=== PATIENT | female | born 1955 | race Caucasian/White ===

== ENCOUNTER 2016-03-18 05:59 | Day surgery (SDC) | payer MEDICARE, MEDICAID ==
[2016-03-18] MEDS ORDERED: LACTATED RINGERS 1,000 ML IV ONE (06:43)
[2016-03-18] MEDS ORDERED: MORPHINE 10 MG/ML VIAL IVP ONE (08:45)
[2016-03-18] MEDS ORDERED: LIDOCAINE-MPF 2% 5 ML VIAL IM ONE (08:45)
[2016-03-18] MEDS ORDERED: PROPOFOL 200 MG/20 ML VIAL IVP ONE (08:45)
== END 2016-03-18 06:00 | disposition home or self-care (01) ==
PROC: 0DBM8ZZ Excision of Descending Colon, Via Natural or Artificial Opening Endoscopic (ICD-10-PCS; principal; 2016-03-18 07:30)
PROC: 0DJ08ZZ Inspection of Upper Intestinal Tract, Via Natural or Artificial Opening Endoscopic (ICD-10-PCS; 2016-03-18 07:30)
DX: Z12.11 Encounter for screening for malignant neoplasm of colon (principal); D12.4 Benign neoplasm of descending colon; K64.8 Other hemorrhoids; R13.10 Dysphagia, unspecified; K21.9 Gastro-esophageal reflux disease without esophagitis; Z80.0 Family history of malignant neoplasm of digestive organs; J44.9 Chronic obstructive pulmonary disease, unspecified; F17.210 Nicotine dependence, cigarettes, uncomplicated; K44.9 Diaphragmatic hernia without obstruction or gangrene; R11.2 Nausea with vomiting, unspecified; E66.9 Obesity, unspecified; Z68.36 Body mass index [BMI] 36.0-36.9, adult; G47.30 Sleep apnea, unspecified
CPT/HCPCS: 43235; 45380; J7120

== ENCOUNTER 2019-11-16 12:54 | Outpatient (CLI) | payer MEDICARE, MEDICAID | END 2019-11-16 12:55 | disposition home or self-care (01) | LOC: RT 12:54 | PROVIDERS: ATTEND Family Medicine | DX: J44.1 Chronic obstructive pulmonary disease with (acute) exacerbation (principal) | CPT/HCPCS: 94060; 94729 ==

== ENCOUNTER 2019-12-06 08:00 | Outpatient (CLI) | payer MEDICARE, MEDICAID ==
[2019-12-06 18:18] LABS: BASOPHILS # (AUTO) 0.1 10^3/uL (0.0-0.1); BASOPHILS % (AUTO) 0.8 %; EOSINOPHILS % (AUTO) 0.1 %; HGB - HEMOGLOBIN 14.1 g/dL (12.0-16.0); LYMPHOCYTES # (AUTO) 3.2 10^3/uL (1.5-3.5); LYMPHOCYTES % (AUTO) 26.9 %; MEAN CORPUSCULAR HEMOGLOBIN 29.9 pg (27.0-31.0); MEAN CORPUSCULAR HGB CONC 31.8 g/dL (32.0-36.0); MEAN CORPUSCULAR VOLUME 94.1 fL (81.0-99.0); MEAN PLATELET VOLUME 10.3 fL (7.9-10.8); MONOCYTES # (AUTO) 0.8 10^3/uL (0.0-1.0); MONOCYTES % (AUTO) 6.5 %; NEUTROPHILS # (AUTO) 7.7 10^3/uL (1.5-6.6); NEUTROPHILS % (AUTO) 65.4 %; PLT - PLATELET COUNT 395 10^3/uL (130-450); RED BLOOD COUNT 4.71 10^6/uL (4.20-5.40); RED CELL DISTRIBUTION WIDTH 13.3 % (12.0-15.0); WHITE BLOOD COUNT 11.7 x10^3/uL (4.8-10.8)
[2019-12-06 18:30] LABS: ALBUMIN 3.8 g/dL (3.2-5.5); ALBUMIN/GLOBULIN RATIO 1.1 (1.0-2.2); ALKALINE PHOSPHATASE 79 IU/L (42-121); ALT ALANINE AMINOTRANSFERASE 13 IU/L (10-60); AST ASPARTATE AMINOTRANSFERASE 15 IU/L (10-42); BILIRUBIN,TOTAL 0.6 mg/dL (0.2-1.0); BUN - BLOOD UREA NITROGEN 14 mg/dL (6-20); CALCIUM 9.4 mg/dL (8.5-10.3); CARBON DIOXIDE - CO2 24 mmol/L (21-32); CHLORIDE 106 mmol/L (101-111); CHOL/HDL RATIO 6.6 (<4.4); CHOLESTEROL 212 mg/dL; CREATININE 1.1 mg/dL (0.4-1.0); GLUCOSE 100 mg/dL (70-100); HDL CHOLESTEROL 32 mg/dL; LDL CHOLESTEROL,CALCULATED 141 mg/dL; LDL/HDL RATIO 4.4 (<4.4); SODIUM 140 mmol/L (135-145); TOTAL PROTEIN 7.3 g/dL (6.7-8.2); VLDL CHOLESTEROL 39 mg/dL
[2019-12-06 20:12] LABS: FREE T4 (FREE THYROXINE) 0.79 ng/dL (0.58-1.64)
[2019-12-06 20:22] LABS: HEMOGLOBIN A1c% 5.8 % (4.27-6.07)
== END 2019-12-06 23:59 | disposition home or self-care (01) ==
LOC: LAB.WCP 08:00
PROVIDERS: ATTEND Physician Assistant
DX: J44.9 Chronic obstructive pulmonary disease, unspecified (principal); E66.01 Morbid (severe) obesity due to excess calories; E03.9 Hypothyroidism, unspecified
CPT/HCPCS: 36415; 80053; 80061; 83036; 83721; 84439; 84443; 85025

== ENCOUNTER 2019-12-26 22:02 | Outpatient (CLI) | payer MEDICARE, MEDICAID | END 2019-12-26 22:03 | disposition short-term general hospital (02) | LOC: EMS 22:02 | PROVIDERS: ATTEND Surgery | DX: R07.9 Chest pain, unspecified (principal); M54.2 Cervicalgia; R06.00 Dyspnea, unspecified | CPT/HCPCS: A0425; A0427 ==

== ENCOUNTER 2020-02-05 14:43 | Outpatient (CLI) | payer MEDICARE, MEDICAID ==
[2020-02-05 15:41] VITALS: BP 160/97
--- NOTE | 2020-02-05 15:41 | SLEEP CARE CONSULTATION ---
Information from patient questionnaire entered by Bea Burgos. I have reviewed and concur with the information entered by Bea Burgos. This document represents the service I personally performed and the decisions made by me, Kylah Monroe ARNP. History of Present Illness Service Date and Time: 02/05/2020 1443 Reason for Visit: New patient Chief Complaint: reports: Insomnia (sometimes cannot go to sleep at all), Unrefreshed sleep, Snoring, Excessive daytime sleepiness, Observed pauses in breathing, Fatigue, Frequent awakenings at night Date of Onset: 3-4 years Usual bedtime: 10 pm Time it takes to fall asleep: 1-2 hours Snores at night: Yes Observed to quit breathing while asleep: Yes Sleeps alone due to snoring: No Number of times waking at night: 4-6 times, or more Reasons for waking at night: reports: Choking, Snoring, Gasping for air, Ba throom Toss, Turn, or Twitch while sleeping: Yes Recalls having dreams: Yes Usually gets out of bed at: 5-6 am Feels refreshed in the morning: No Morning headache: Yes (2-3 times a week, until takes advil) Sleepy or fatigued during the day: Yes Ever fallen asleep while driving: No Takes day naps: Yes (3-4 times a week) Dreams during day naps: No Prior sleep studies: Yes Year and Where: 2010 [place] Additional HPI information: I had the pleasure of seeing ONDINA ALMANZAR today regarding the possibility of her having a sleep disorder. Her current complaints are insomnia, snoring, observed pauses in breathing, frequent awakening at night, unrefreshed sleep, excessive daytime sleepiness and fatigue. She was originally started on CPAP 2010 in [place]. She does not remember how severe her SRAAH was found to be or the name of the place she got her test done. She was prescribed a CPAP machine that she used up until about 2 years ago. She moved, it got packed and she stopped using it consistently. She has a CPAP machine at home that she will use periodically but recently she feels like the pressure is suffocating and cannot use it now. - Parasomnia Symptoms Ever been unable to move upon waking from sleep: No Walks in sleep: No Talks in sleep: No Ever acted out dreams in sleep: Yes Ever felt weak in the knees when startled or emotional: Yes Bothered by creepy, crawly, restless sensations in legs: Yes Problems with memory or concentration: Yes Subjective Initial [place] Sleepiness Scale score: 13 (in 2019) Past Medical History Past Medical History: reports: Hypothyroidism, Emphysema, GERD. denies: Hypertension, Diabetes, Arrythmia, Anemia Social History The patient's occupation is a Retired. Patient is Single and lives in [place]. Have you smoked in the past 12 months: Yes Cigarettes per day (20/pack): 3 Years of smokin Quit date: working on it Smoking Pack Years: 5.1 Alcohol use: No Caffeine use: Yes Caffeine amount and frequency: 2 cups of coffee per day Family History Family history of sleep disordered breathing: No Allergies and Home Medications Drug allergies reviewed: Yes (NKDA) Home medication list reviewed: Yes Allergy and home medication list: Euthyrox 7.5 mcg Chantix 1 mg Pregabalin 100 mg baby aspirin 81 mg 2x a day Review of Systems Cardiovascular: reports: leg or foot swelling, have to sleep sitting up Respiratory: reports: shortness of breath, wheeze, sputum production, chronic cough Gastrointestinal: reports: heartburn, difficulty swallowing, nausea, diarrhea, abdominal pain Urinary: reports: frequency Neurological: reports: headaches Psychiatric: reports: anxiety Ear/Nose/Throat: reports: dry mouth/throat, hoarseness, wisdom teeth removed Endocrine: reports: thyroid disease, sluggishness Musculoskeletal: reports: joint pain, neck pain, back pain, joint swelling Physical Exam Blood Pressure: 160/97 (running here lately, saw PCP) Cuff size: wrist Heart Rate: 74 O2 Saturation: 98 Height: 5 ft 6 in Weight: 230 lb Body Mass Index: 37.1 BMI Classification: Obese Neck circumference: 16.5 (inches) Nostrils: patent to airflow Turbinates: swollen Mouth and throat: narrow oropharynx Soft palate: normal Hard palate: normal Uvula: normal Uvula visualization: 25% Mallampati Class III Tongue: normal in size Tonsils: 1+ Chin and jaw: normal size and position Neck: normal w/o lymphadenopathy or thyromegaly Heart: regular rate and rhythm Lungs: wheeze (hx of COPD and smoker) Impression and Plan 1. Suspected Obstructive Sleep Apnea-Hypopnea Syndrome, previous diagnosis of sleep apnea and as suggested by a continued history of loud and irregular snoring, observed cessation of breath while asleep, gasping or choking in sleep, morning headache, frequent awakening during the night, unrefreshed sleep, cognitive impairment, and excessive daytime sleepiness. I reviewed with patient that a narrow oropharynx and obesity are common predisposing factors for obstructive sleep apnea-hypopnea syndrome. I recommend proceeding to polysomnography to confirm the diagnosis and to assess severity. If the patient has significant sleep disordered breathing, a manual CPAP titration study will also be performed to find the optimal treatment pressure. I informed the patient of what the sleep studies involve and after some discussion, obtained agreement to proceed. The pathophysiology of obstructive sleep apnea-hypopnea syndrome was discussed with the patient and health risks of cardiovascular and cerebrovascular disease if not treated. Risks of drowsy driving discussed in detail and patient advised to avoid long distance driving and to taffy puller at the first sign of drowsiness. Patient agreed to plan. * Schedule polysomnography +- manual CPAP titration study and return in 1-2 weeks after the study to discuss result and initiate therapy. * Avoid long distance driving or driving when feeling sleepy. * Avoid alcohol, sedative and muscle relaxant around bedtime. * Attempt to lose weight. * Review instructions provided by trained office staff on how to prepare for the sleep study. * Return for follow-up after sleep study completed. Visit Type: In Office Time Spent with Patient (minutes): 32 Provider Statement: I spent 100% of the Face to Face Visit with the patient with greater than 50% spent counseling the patient and coordination of care.
== END 2020-02-05 14:44 | disposition home or self-care (01) ==
LOC: SC 14:43
PROVIDERS: ATTEND Nurse Practitioner Family
DX: G47.10 Hypersomnia, unspecified (principal); R41.89 Other symptoms and signs involving cognitive functions and awareness; G47.8 Other sleep disorders; R51.9 Headache, unspecified; R06.81 Apnea, not elsewhere classified; R06.83 Snoring; E66.9 Obesity, unspecified; Z68.37 Body mass index [BMI] 37.0-37.9, adult
CPT/HCPCS: 99203; G0463; 99212

== ENCOUNTER 2020-03-01 18:41 | Outpatient (CLI) | payer MEDICARE, MEDICAID | END 2020-03-01 18:42 | disposition home or self-care (01) | LOC: SC 18:41 | PROVIDERS: ATTEND Nurse Practitioner Family | DX: G47.33 Obstructive sleep apnea (adult) (pediatric) (principal); G47.61 Periodic limb movement disorder; E66.9 Obesity, unspecified; Z68.37 Body mass index [BMI] 37.0-37.9, adult | CPT/HCPCS: 95810 ==

== ENCOUNTER 2020-03-13 12:39 | Outpatient (CLI) | payer MEDICARE, MEDICAID ==
--- NOTE | 2020-03-13 13:16 | SLEEP CARE CONSULTATION ---
Information from patient questionnaire entered by Bea Burgos. I have reviewed and concur with the information entered by Bea Burgos. This document represents the service I personally performed and the decisions made by , Kylah Monroe ARNP. History of Present Illness Service Date and Time: 03/13/2020 1239 Initial [place] Sleepiness Scale score: 13 (in 2020) Current [place] Sleepiness Scale score: 18 Additional HPI information: ONDINA ALMANZAR returns for follow up and results of the recently performed polysomnography. I explained the pathophysiology behind obstructive sleep apnea. We then spent quite a bit of time discussing different treatment options. For mild obstructive sleep apnea, surgery and oral appliance are alternatives to nasal CPAP therapy but in moderate or severe cases, nasal CPAP is the most effective and reliable treatment. Because apnea is primarily in supine position, then positional management therapy could be effective. Methods discussed such as positioning with pillows, using a T-shirt with tennis balls in the back, and shown commercial products that have a pillow format on back to prevent supine sleep. I reviewed the impact of weight changes on sleep apnea and strongly recommended losing weight. After some discussion, the patient opted to go with the nasal CPAP therapy. Nasal autoCPAP set at [id number] will be ordered with rationale explained. A manual titration study will be ordered if unable to find optimal pressure with office adjustments. I explained how CPAP machine works with sample devices Resp[employer]ics Dreamstation and [employer] (now [employer]) [id number] and what to expect when using the machine. Using CPAP every night in order to get used to it was emphasized. Patient advised to put CPAP mask on before getting into bed so as not to fall asleep without CPAP. To assist acclimation to CPAP use, it could also be used for a short time during day while reading or watching TV. The patient was instructed to call the CPAP supplier to discuss any mechanical problem that may occur. If the mask given is uncomfortable or is difficult to keep on through the night even with adjustment, contact the CPAP supplier as many will replace with another mask style if notified before 30 days. If snoring or perceives is not getting enough air or too much air from the machine, notify this office. [facility] patient education PAP tips reviewed and given to patient. Patient counseled not drink alcohol less than 4 hours before bedtime as it can increase snoring and apnea. Patient was cautioned about risks of drowsy driving until sleepiness symptoms resolve. Sleep Study - Results Type of Sleep Study: Polysomnography Prior sleep studies: Yes Year and Where: 2010 [place] Polysomnography/Home Sleep Study results: IMPRESSION: The quality of the study is good. The patient had reduced sleep efficiency due to frequent awakenings after the sleep onset. The sleep architecture was abnormal for sleep fragmentation and reduced amount of time spent in REM and slow wave sleep (N3). Respiratory monitoring showed moderate obstructive sleep apneahypopnea (AHI = 19.8) associated with frequent arousals, oxyhemoglobin desaturation and mild hypoxia (rachel oxygen saturation of 81%). Baseline oxygen saturation was also low during REM sleep. The respiratory events occurred mainly during supine sleep (supine AHI = 66.7; non-supine = 19.55). Snore was loud in intensity. There was moderate periodic leg movement of sleep not associated with sleep fragmentation. Cardiac rhythm was normal sinus rhythm without significant arrhythmia. No abnormal behavior (parasomnia) observed during the night. Allergies and Home Medications Home medication list reviewed: Yes (no changes) Review of Systems Review of systems same as previous: Yes (no changes) Physical Exam Heart Rate: 76 O2 Saturation: 98 Height: 5 ft 6 in Weight: 232 lb Body Mass Index: 37.4 BMI Classification: Obese Impression and Plan 1. Obstructive Sleep Apnea-Hypopnea Syndrome, moderate, with lowest oxygen saturation of 81%. Obviously this is the cause of the patients symptoms of unrefreshed sleep, and excessive daytime sleepiness. Positive pressure therapy could benefit emphysema and gastric reflux. As mentioned above, the patient will be started on nasal autoCPAP therapy with pressure set at 4-15 cmH2O. A manual titration study will be completed if unable to find optimal treatment pressure with office adjustments. Compliance guidelines also reviewed. A copy of compliance guidelines will be given for reference at check out. Because the apnea is more severe supine, I instructed to avoid sleeping supine using pillow positioning until able to start CPAP use. 2. Periodic limb movement, moderate, that did not fragment patients sleep. Periodic limb movement of sleep (PLMS) is characterized by episodes of repetitive limb movements that occur during sleep and usually involve the lower limbs. The etiology is unknown but can be associated with restless leg syndrome (RLS), neuropathy, spinal cord diseases, kidney disease, rheumatological disorders, narcolepsy, obstructive sleep apnea, and REM sleep behavior disorder. Other factors that can increase PLMS and/or RLS are heredity and iron deficiency as reflected by a low serum ferritin level below 50 to 75mcg / L. Several medications can precipitate or aggravate PLMS such as selective serotonin re- uptake inhibitor antidepressants, tricyclic antidepressants, lithium, and dopamine receptor antagonists with the exception of bupropion. Caffeine can also aggravate PLMS and should be avoided. Sleep hygiene methods can also improve sleep as well as lifestyle changes such as regular exercise. Patient was advised that no treatment is needed at this time. If symptoms increase, then further evaluation is indicated. * Nasal auto CPAP therapy, pressure at 4-15 cm H2O. * Attempt to lose weight. * Avoid alcohol consumption near bedtime. * Avoid supine sleep until using CPAP. * The patient is again cautioned about driving until sleepiness completely resolves. * Return one month after CPAP obtained. I will assess response to therapy and compliance at that time. Counseling Topics: Weight loss health impact Visit Type: In Office Time Spent with Patient (minutes): 20 Provider Statement: I spent 100% of the Face to Face Visit with the patient with greater than 50% spent counseling the patient and coordination of care.
== END 2020-03-13 12:40 | disposition home or self-care (01) ==
LOC: SC 12:39
PROVIDERS: ATTEND Nurse Practitioner Family
DX: G47.33 Obstructive sleep apnea (adult) (pediatric) (principal); E66.9 Obesity, unspecified; Z68.37 Body mass index [BMI] 37.0-37.9, adult; G47.61 Periodic limb movement disorder
CPT/HCPCS: 99213; G0463; 99212

== ENCOUNTER 2020-06-03 13:18 | Outpatient (CLI) | payer MEDICARE, MEDICAID ==
--- NOTE | 2020-06-03 14:17 | SLEEP CARE CONSULTATION ---
Information from patient questionnaire entered by Jake Cali. I have reviewed and concur with the information entered by Jake Cali. This document represents the service I personally performed and the decisions made by me, Kylah Monroe ARNP. History of Present Illness Service Date and Time: 06/03/2020 1318 Previous diagnosis: Moderate, Obstructive Sleep Apnea-Hypopnea Syndrome AHI: 19.8 Reason for follow up: first compliance (Setup date 04/20) Equipment type: CPAP Equipment obtained from: Other ([facility]; got initial supplies) Mask style: Nasal Backup mask available: No (will keep old mask when replaced) Last cushion change: 2 weeks Prior sleep studies: Yes Year and Where: 2020 [facility] and 2010 Type of Sleep Study: Polysomnography HPI additional information: ONDINA ALMANZAR was diagnosed to have moderate, AHI 19.8, obstructive sleep apnea- hypopnea syndrome and returned today for CPAP therapy first compliance follow- up. CPAP Compliance Data - Data Reviewed with Patient Average duration of nightly device use: 5 hours 42 minutes Compliance rate %: 60 Current pressure setting (cmH2O): 6-10 (mean 7.5, avg 9.4, max 9.9) Average residual AHI: 0.5 Average large leak: 4.1 L/min Subjective Missed days of use due to: reports: family emergency (sister dx with melanoma), mask issues Patient concerns: reports: nasal congestion (only upon waking up, but not when using the machine). denies: aerophagia, mask discomfort, air blowing in eyes, mask leak noise, condensation in mask/hose, dry mouth, nose, throat, epistaxis, other Observed to snore while using device: No Current pressure setting perceived as: too high On therapy, patient: reports: sleeping better, awakening more refreshed, being more awake and alert during the day, more rested overall, drowsiness while driving (doesn't drive much anymore) Initial [place] Sleepiness Scale score: 13 (in 2019) Current [place] Sleepiness Scale score: 15 Allergies and Home Medications Home medication list reviewed: Yes (no changes) Review of Systems Review of systems same as previous: Yes (no changes) Physical Exam Heart Rate: 67 O2 Saturation: 97 Height: 5 ft 6 in Weight: 230 lb Body Mass Index: 37.1 BMI Classification: Obese Impression and Plan 1. Obstructive Sleep Apnea-Hypopnea Syndrome, moderate, with fair treatment compliance and excellent apnea control. On CPAP therapy, the patient has better sleep quality and is more rested overall. She missed a few days because of distress over a younger sister's cancer diagnosis with 1 month to live. She is getting significant improvement of her sleep apnea and is satisfied with her treatment. She will try harder to wear every night for all sleep. She has had some nasal congestion drainage when taking off the mask in the morning. Her nose drains a lot. She states she has no nasal congestion when using the CPAP machine. Patient's apnea severity and rationale for treatment to reduce apnea, improve sleep quality and reduce cardiovascular and cerebrovascular events was reviewed. I also reviewed the benefit of consistent device use of CPAP for gastric reflux and emphysema. * Continue auto CPAP pressure at 6-10 cmH2O * Notify me if snoring with mask or feeling that the pressure is too much or too little * Attempt to lose weight * Call this office if any problems using CPAP * Return for follow up in 1-2 months to recheck compliance, or sooner if concerns arise Counseling Topics: Spare mask, Weight loss health impact Visit Type: In Office Time Spent with Patient (minutes): 24 Provider Statement: I spent 100% of the Face to Face Visit with the patient with greater than 50% spent counseling the patient and coordination of care.
== END 2020-06-03 13:19 | disposition home or self-care (01) ==
LOC: SC 13:18
PROVIDERS: ATTEND Nurse Practitioner Family
DX: G47.33 Obstructive sleep apnea (adult) (pediatric) (principal); E66.9 Obesity, unspecified; Z68.37 Body mass index [BMI] 37.0-37.9, adult
CPT/HCPCS: 99213; G0463; 99212

== ENCOUNTER 2020-06-23 13:16 | Outpatient (CLI) | payer MEDICARE, MEDICAID ==
--- NOTE | 2020-06-23 13:46 | SLEEP CARE CONSULTATION ---
Information from patient questionnaire entered by Bea Burgos. I have reviewed and concur with the information entered by Bea Burgos. This document represents the service I personally performed and the decisions made by , Kylah Monroe ARNP. History of Present Illness Service Date and Time: 06/23/2020 1316 Previous diagnosis: Moderate, Obstructive Sleep Apnea-Hypopnea Syndrome AHI: 19.8 (in 2020) Reason for follow up: other (3 week; last chance for compliance) Equipment type: CPAP Equipment obtained from: Other ([facility]; can order supplies) Mask style: Nasal Backup mask available: No (will keep old mask when replaced) Last cushion change: 2 days ago Prior sleep studies: Yes Year and Where: 2020 [facility]; 2010 - [place] Type of Sleep Study: Polysomnography HPI additional information: ONDINA ALMANZAR was diagnosed to have moderate, AHI 19.8, obstructive sleep apnea- hypopnea syndrome and returned today for CPAP therapy compliance follow-up. CPAP Compliance Data - Data Reviewed with Patient Average duration of nightly device use: 7 hr 24 min Compliance rate %: 80 Current pressure setting (cmH2O): 6-10 Humidity settin Average residual AHI: 0.4 Subjective Missed days of use due to: reports: family emergency (sister ) Patient concerns: reports: condensation in mask/hose. denies: aerophagia, mask discomfort, air blowing in eyes, mask leak noise, nasal congestion, dry mouth, nose, throat, epistaxis, other Observed to snore while using device: No Current pressure setting perceived as: comfortable On therapy, patient: reports: sleeping better, awakening more refreshed, being more awake and alert during the day, more rested overall. denies: drowsiness while driving Initial [place] Sleepiness Scale score: 13 (in 2019) Current [place] Sleepiness Scale score: 10 Allergies and Home Medications Home medication list reviewed: Yes (no new meds) Review of Systems Review of systems same as previous: Yes (no changes) Physical Exam Heart Rate: 76 O2 Saturation: 98 Height: 5 ft 6 in Weight: 228 lb Body Mass Index: 36.8 BMI Classification: Obese Impression and Plan 1. Obstructive Sleep Apnea-Hypopnea Syndrome, moderate, with good treatment compliance and excellent apnea control. On CPAP therapy, the patient has better sleep quality and is more rested overall. She has been getting some condensation in her mask. I advised her to increase the heated hose temperature to dry out the condensation. Verbal instructions on how to change setting given using similar model in office. She lost 2 pounds since her last visit. She was encouraged to continue to try to lose weight. She voiced understanding and agreement with plan. She is very happy with current treatment and plans on using parts counterman. On Monday, her sister and she will be going back to [place] for the [facility] services so I will follow up with her in about 6 months. Patient's apnea severity and rationale for treatment to reduce apnea, improve sleep quality and reduce cardiovascular and cerebrovascular events was reviewed. I also reviewed the benefit of consistent device use of CPAP for gastric reflux and emphysema. * Continue auto CPAP pressure at 6-10 cmH2O * Notify me if snoring with mask or feeling that the pressure is too much or too little * Continue to try to lose weight * Call this office if any problems using CPAP * Return for follow up in 6 months, or sooner if concerns arise Counseling Topics: Spare mask, Weight loss health impact Visit Type: In Office Time Spent with Patient (minutes): 21 Provider Statement: I spent 100% of the Face to Face Visit with the patient with greater than 50% spent counseling the patient and coordination of care.
== END 2020-06-23 13:17 | disposition home or self-care (01) ==
LOC: SC 13:16
PROVIDERS: ATTEND Nurse Practitioner Family
DX: G47.33 Obstructive sleep apnea (adult) (pediatric) (principal); E66.9 Obesity, unspecified; Z68.36 Body mass index [BMI] 36.0-36.9, adult
CPT/HCPCS: 99213; G0463; 99212